=== PATIENT | male | born 1955 | race Caucasian/White ===

== ENCOUNTER 2016-07-29 07:20 | Observation (INO) | payer MEDICAID ==
--- NOTE | 2016-07-29 07:25 | EDPHY ---
HPI/HX/ROS/PE/MDM Narrative: CHIEF COMPLAINT: Tongue swelling HPI: The patient is a 61 y/o male arriving via EMS complaining of worsening tongue swelling since midnight, about 7 hours prior to arrival. He has a history of hypertension for which he was started on lisinopril a few months ago. He has never had this reaction before. He denies new exposures to foods, changes in medications, or insect bites. No shortness of breath, sensation of throat tightness, difficulty speaking or talking, or other complaints. REVIEW OF SYSTEMS: Aside from elements discussed in the HPI, a comprehensive 10-point review of systems was reviewed and is negative. PMH: Type 2 diabetes, schizoaffective disorder, CHF with diastolic dysfunction, anxiety, right knee arthroplasty, recurrent UTIs with chronic Goodwin, chronic hyponatremia, anxiety, DVT on Coumadin Prior medical records reviewed including admission 07/12/13 for malaise. SOCIAL HISTORY: Lives at [place] PHYSICAL EXAM: General:Patient is alert, in no acute distress. ENT:Eyes are normal to inspection. Enlarged tongue, mild drooling, normal voice. ENT inspection otherwise normal Neck: Normal inspection. Full range of motion. Respiratory:No respiratory distress. Breath sounds normal bilaterally. Cardiovascular: Regular rate and rhythm. Strong peripheral pulses. Normal cap refill. Abdomen:The abdomen is nontender to palpation. There are no peritoneal signs. There are normal bowel sounds. Back: Normal to inspection. No tenderness to palpation. Skin: Normal color. No rash. Warm and dry. Extremities: Full range of motion. 1-2+ pitting edema bilaterally Neuro: Oriented x3. Normal motor function. Normal sensory function. ED Course: 0720: Met EMS upon arrival and took report. IV established. Labs drawn including CBC, CHEM, PTPTT, BNP. Plan for admission for angioedema. 0855: Spoke with hospitalist service. Dr. Rapp accepts admission. MDM: This patient presents with swollen tongue that appears to be secondary to angioedema. Given recent initiation of lisinopril therapy, I suspect this is likely the etiology. The patient has a stable airway here and does not require intubation. He requires admission to the hospital for further observation and treatment however. - Data Points Laboratory Results: Laboratory Results 07/29/16 07:35 07/29/16 07:35 07/29/16 07:35 WBC 4.56 10^3/uL (3.80-9.50) RBC 4.17 L 10^6/uL (4.40-6.38) Hgb 14.1 g/dL (13.7-17.5) Hct 40.8 % (40.0-51.0) MCV 97.8 fL (81.5-99.8) MCH 33.8 pg (27.9-34.1) MCHC 34.6 g/dL (32.4-36.7) RDW 13.4 % (11.5-15.2) Plt Count 140 L 10^3/uL (150-400) MPV 10.5 fL (8.7-11.7) Neut % (Auto) 66.0 % (39.3-74.2) Lymph % (Auto) 17.3 % (15.0-45.0) [place] % (Auto) 13.6 H % (4.5-13.0) Eos % (Auto) 2.0 % (0.6-7.6) Baso % (Auto) 0.4 % (0.3-1.7) Nucleat RBC Rel Count 0.0 % (0.0-0.2) Absolute Neuts (auto) 3.01 10^3/uL (1.70-6.50) Absolute Lymphs (auto) 0.79 L 10^3/uL (1.00-3.00) Absolute Monos (auto) 0.62 10^3/uL (0.30-0.80) Absolute Eos (auto) 0.09 10^3/uL (0.03-0.40) Absolute Basos (auto) 0.02 10^3/uL (0.02-0.10) Absolute Nucleated RBC 0.00 10^3/uL (0-0.01) Immature Gran % 0.7 % (0.0-1.1) Immature Gran # 0.03 10^3/uL (0.00-0.10) PT 15.0 SEC (12.0-15.0) INR 1.18 H (0.83-1.16) APTT 30.3 SEC (23.0-38.0) Sodium 131 L mEq/L (134-144) Potassium 5.5 H mEq/L (3.5-5.2) Chloride 97 mEq/L (97-110) Carbon Dioxide 28 mEq/l (22-31) Anion Gap 6 mEq/L (8-16) BUN 28 H mg/dL (7-23) Creatinine 0.9 mg/dL (0.7-1.3) Estimated GFR > 60 Glucose 103 H mg/dL (70-100) Calcium 8.6 mg/dL (8.5-10.4) NT-Pro-B Natriuret Pep 144 H pg/mL (0-125) General Initial Vital Signs: Initial Vital Signs Temperature (C) 36.5 C 07/29/16 07:20 Heart Rate 71 07/29/16 07:20 Respiratory Rate 20 07/29/16 07:20 Blood Pressure 119/93 H 07/29/16 07:20 O2 Sat (%) 90 L 07/29/16 07:20 O2 Delivery Mode Room Air O2 (L/minute) 2 Allergies/Adverse Reactions: atenolol Allergy (Unknown, Verified 07/12/13 16:09) Unknown Beta-Adrenergic Agents Allergy (Unknown, Verified 07/12/13 16:09) Unknown hydrochlorothiazide Allergy (Unknown, Verified 07/12/13 16:09) Unknown sotalol [Sotalol] Allergy (Unknown, Verified 07/12/13 16:09) Unknown nitrofurantoin [From Macrobid] Allergy (Verified 07/12/13 16:09) nitrofurantoin macrocrystalline [From Macrobid] Allergy (Verified 07/12/13 16:09 ) Home Medications: Medication Instructions Recorded Albuterol 07/29/16 Amox Tr/Potassium Clavulanate 07/29/16 [Augmentin 1000MG ER Tablet (*)] CHLORHEX GL/GLYCERIN/HE-CELL 07/29/16 CLONAZEPAM 07/29/16 Calcium Carbonate 07/29/16 Divalproex ER [Depakote ER 250 MG 07/29/16 (*)] Dulcolax 07/29/16 FLUoxetine 07/29/16 Ipratropium/Albuterol 07/29/16 Lactobacillus Combo No.11 07/29/16 [Probiotic] Lasix 07/29/16 Lisinopril 07/29/16 MAGNESIUM 07/29/16 Magnesium Oxide 07/29/16 Metformin 1000 mg 07/29/16 QUEtiapine FUMARATE [Seroquel 100 07/29/16 mg (*)] THERMOTABS TABLET 07/29/16 Tylenol 07/29/16 Warfarin Sodium [Coumadin] 5 mg PO 07/29/16 Departure - Departure Disposition: [facility] Inpatient Acute Clinical Impression: Angioedema Qualifiers: Qualifier Code: (T78.3XXA) Angioneurotic edema, initial encounter Condition: Fair Report Scribed for: Ryan Lam Report Scribed by: Lesley Foster Date of Report: 07/29/16 Time of Report: 07:25 Physician Review and Approval Statement: Portions of this note were transcribed by an ED scribe. I personally performed the history, physical exam, and medical decision making; and confirm the accuracy of the information in the transcribed note.
[2016-07-29 07:45] LABS: % IMMATURE GRANULYOCYTES 0.7 % (0.0-1.1); ABSOLUTE IMMATURE GRANULOCYTES 0.03 10^3/uL (0.00-0.10); ADD DIFF? NO; ADD MORPH? NO; ADD SCAN? NO; ATYPICAL LYMPHOCYTE FLAG 0 (0-99); FRAGMENT RBC FLAG 0 (0-99); HEMATOCRIT 40.8 % (40.0-51.0); HEMOGLOBIN 14.1 g/dL (13.7-17.5); LEFT SHIFT FLG 0 (0-99); LIPEMIA HEMOLYSIS FLAG 90 (0-99); MEAN CELL HEMOGLOBIN 33.8 pg (27.9-34.1); MEAN CELL HEMOGLOBIN CONCENTR. 34.6 g/dL (32.4-36.7); MEAN CELL VOLUME 97.8 fL (81.5-99.8); MEAN PLATELET VOLUME 10.5 fL (8.7-11.7); PLATELET CLUMPS FLAG 10 (0-99); PLATELET COUNT 140 10^3/uL (150-400); RED BLOOD CELL COUNT 4.17 10^6/uL (4.40-6.38); RED CELL DISTRIBUTION WIDTH 13.4 % (11.5-15.2)
[2016-07-29 07:55] LABS: INR 1.18 (0.83-1.16)
[2016-07-29 07:56] LABS: APTT 30.3 SEC (23.0-38.0)
[2016-07-29 08:08] LABS: ANION GAP 6 mEq/L (8-16); CALCIUM 8.6 mg/dL (8.5-10.4); CARBON DIOXIDE 28 mEq/l (22-31); CHLORIDE 97 mEq/L (97-110); CREATININE 0.9 mg/dL (0.7-1.3); GLOMERULAR FILTRATION RATE > 60; GLUCOSE 103 mg/dL (70-100); POTASSIUM 5.5 mEq/L (3.5-5.2); SODIUM 131 mEq/L (134-144)
[2016-07-29] MEDS ORDERED: ACETAMINOPHEN 325 MG TAB PO PRN (10:37)
[2016-07-29] MEDS ORDERED: ONDANSETRON DISINTEGRATING 4 MG TAB PO PRN (10:37)
[2016-07-29] MEDS ORDERED: ONDANSETRON 4 MG/2 ML VIAL IVP PRN (10:37)
[2016-07-29 11:52] LABS: ANION GAP 7 mEq/L (8-16); CALCIUM 8.9 mg/dL (8.5-10.4); CARBON DIOXIDE 28 mEq/l (22-31); CHLORIDE 96 mEq/L (97-110); CREATININE 0.9 mg/dL (0.7-1.3); GLOMERULAR FILTRATION RATE > 60; GLUCOSE 106 mg/dL (70-100); POTASSIUM 5.4 mEq/L (3.5-5.2); SODIUM 131 mEq/L (134-144)
--- NOTE | 2016-07-29 12:01 | GHP ---
[f rep st] HISTORY AND PHYSICAL DATE OF ADMISSION: 07/29/2016 DATE OF EVALUATION: 07/29/2016 CHIEF COMPLAINT: Tongue swelling. HISTORY OF PRESENT ILLNESS: This is a 61-year-old man who is a permanent [place] resident who presents with tongue swelling. He was started on lisinopril for hypertension about 3 months ago. He has never had any episodes of this before. It started last night and got progressively worse through the night. He has no problems breathing. He is having difficulty speaking due to the size of his tongue. He feels as though his tongue is actually improving at this point as his speaking has become easier than it was previously. He has a history of PE, on Coumadin. Recent dose adjustments appeared to have been made as he had an INR of 4.1, on 07/20/2016. PAST MEDICAL/SURGICAL HISTORY: 1. History of a pulmonary embolus, on Coumadin, with subtherapeutic INR. 2. 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 3. History of recurrent urinary tract infections, including ESBL. 4. Neurogenic bladder. 5. Type 2 diabetes. 6. Schizoaffective disorder. 7. Diastolic CHF. 8. Obstructive sleep apnea. 9. Anxiety. 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 11. Chronic hyponatremia. 12. Chronic lower extremity edema. 13. COPD. 14. GERD. MEDICATIONS: Please see medication reconciliation. ALLERGIES: Atenolol, beta adrenergic agents, sotalol, Macrobid, lisinopril. SOCIAL HISTORY: He lives in [place]. He smokes. His sister is his POA. FAMILY HISTORY: Father from trauma. REVIEW OF SYSTEMS: A 10-point review of systems is conducted and is negative except per HPI. PHYSICAL EXAMINATION: VITAL SIGNS: Blood pressure 130/88, heart rate 67, respiration rate 20, saturating 95% on 1.5 L. GENERAL: The patient is a pleasant man who is lying in bed, comfortable, in no acute distress. HEENT: Shows him to have a significantly edematous tongue. He is able to speak, open his mouth. I can barely see the upper back part of his palate. CARDIOVASCULAR : Regular rate and rhythm. No murmurs, rubs, or gallops. PULMONARY: Lungs are clear to auscultation bilaterally. ABDOMEN: Soft, nontender, nondistended. SKIN: No rash. : A Goodwin in place. NEUROLOGIC: Shows him to be alert and oriented x3. He is moving all extremities. PSYCHIATRIC: Normal mood and affect. LABORATORY DATA: CBC is unremarkable. INR is 1.18, sodium 131, potassium 5.5. I reviewed his chart, including his chart from [facility], as well as [place] chart. IMPRESSION AND PLAN: A 61-year-old man who presents with angioedema. 1. Angioedema: LENNY inhibitor induced. Primary role is supportive. It seems to be slowly improving at this point. If it worsens, he may need intubation with mechanical ventilation. Airway may be difficult, would potentially need emergent tracheostomy. Monitor him on pulse oximetry. Will give one dose of pepcid and benadryl. Adjunctive treatments include Icatibant , FFP, purified C1 inhibitor concentrate, or Ecallantide. I have added lisinopril to his allergy list. We will hold this. 2. Hyperkalemia. This seems to be somewhat of a chronic problem for him. I have written to recheck his labs. 3. Hyponatremia, also somewhat of a chronic problem. We will follow. 4. COPD. He has somewhat chronic respiratory failure, on oxygen. Will continue. 5. History of infected knee replacement. We will continue his suppressive antibiotics. 6. History of a PE with subtherapeutic INR. We will continue his warfarin and recheck his INR tomorrow. 7. Schizoaffective disorder. Continue his medicines. 8. Chronic diastolic dysfunction and lower extremity edema: We will continue his furosemide. 9. Hypertension. Hold lisinopril. Restart his other medicines. May need to add adjunctive treatment. 10. Diabetes mellitus. Continue his oral medicines. 11. Code status is full. His sister is his POA. 12. VTE risk. He is currently admitted as obs. If he stays, would start either bridging-dose Lovenox or at least therapeutic-dose Lovenox. /[id number]/MODL MTDD
[2016-07-29] MEDS ORDERED: CALCIUM CARBONATE 500 MG CHEWABLE TAB PO PRN (12:07)
[2016-07-29] MEDS ORDERED: ALBUTEROL 60 PUFFS/8 GM MDI IH PRN (12:07)
[2016-07-29] MEDS ORDERED: MAGNESIUM HYDROXIDE 30 ML UDCUP PO PRN (12:07)
[2016-07-29] MEDS ORDERED: BISACODYL 10 MG SUPP PR PRN (12:07)
[2016-07-29] MEDS ORDERED: GUAIFENESIN/DM 10 ML UDCUP PO PRN (12:07)
[2016-07-29] MEDS ORDERED: oxyCODONE IR 5 MG TAB PO PRN (12:07)
[2016-07-29] MEDS ORDERED: NON-FORMULARY NEW DRUG (Magnesium Hydroxide/Al Hydrox [Mylanta Liquid] 30 ML) PO PRN (12:07)
[2016-07-29] MEDS ORDERED: FAMOTIDINE 20 MG/NACL 50 ML IV ONE (12:17)
[2016-07-29] MEDS ORDERED: MAG HYDROX/AL HYDROX/SIMETH 30 ML UDCUP PO PRN (12:42)
[2016-07-29] MEDS: ACETAMINOPHEN 500 MG TAB PO SCH ×2 (13:19→23:43)
[2016-07-29] MEDS: FUROSEMIDE 20 MG TAB PO SCH (13:22)
[2016-07-29 15:01] LABS: ANION GAP 6 mEq/L (8-16); CALCIUM 8.3 mg/dL (8.5-10.4); CARBON DIOXIDE 28 mEq/l (22-31); CHLORIDE 96 mEq/L (97-110); CREATININE 0.8 mg/dL (0.7-1.3); GLOMERULAR FILTRATION RATE > 60; GLUCOSE 106 mg/dL (70-100); POTASSIUM 4.8 mEq/L (3.5-5.2); SODIUM 130 mEq/L (134-144)
[2016-07-29] MEDS ORDERED: WARFARIN SODIUM 5 MG TAB PO SCH (16:00)
[2016-07-29] MEDS: metFORMIN HCL 500 MG TAB PO SCH (16:52)
[2016-07-29] MEDS: QUEtiapine FUMARATE 300 MG TAB PO SCH (20:05)
[2016-07-29] MEDS: CALCIUM CARBONATE 500 MG TAB PO SCH (20:05)
[2016-07-29] MEDS: OXYBUTYNIN CHLORIDE 5 MG TAB PO SCH (20:05)
[2016-07-29] MEDS: AMOXICILLIN/CLAVULANATE POT 875/125 MG TAB PO SCH (20:05)
[2016-07-29] MEDS: CHLORHEXIDINE GLUCONATE 15 ML UDL PO SCH (20:06)
[2016-07-29] MEDS: clonazePAM 0.5 MG TAB PO SCH (20:06)
[2016-07-29] MEDS: IPRATROPIUM/ALBUTEROL 4GM MDI IH SCH (20:32)
[2016-07-29] MEDS ORDERED: WARFARIN SODIUM 10 MG PO SCH (21:00)
[2016-07-29] MEDS ORDERED: DIVALPROEX ER 500 MG TAB PO SCH (21:00)
[2016-07-29] MEDS ORDERED: ACETAMINOPHEN 500 MG TAB PO SCH (22:00)
[2016-07-30 05:00] LABS: % IMMATURE GRANULYOCYTES 0.5 % (0.0-1.1); ABSOLUTE IMMATURE GRANULOCYTES 0.02 10^3/uL (0.00-0.10); ADD DIFF? NO; ADD MORPH? NO; ADD SCAN? NO; ATYPICAL LYMPHOCYTE FLAG 10 (0-99); FRAGMENT RBC FLAG 0 (0-99); HEMATOCRIT 39.4 % (40.0-51.0); HEMOGLOBIN 13.4 g/dL (13.7-17.5); LEFT SHIFT FLG 0 (0-99); LIPEMIA HEMOLYSIS FLAG 90 (0-99); MEAN CELL HEMOGLOBIN 33.6 pg (27.9-34.1); MEAN CELL VOLUME 98.7 fL (81.5-99.8); MEAN PLATELET VOLUME 10.6 fL (8.7-11.7); PLATELET CLUMPS FLAG 10 (0-99); PLATELET COUNT 129 10^3/uL (150-400); RED BLOOD CELL COUNT 3.99 10^6/uL (4.40-6.38); RED CELL DISTRIBUTION WIDTH 13.4 % (11.5-15.2)
[2016-07-30 05:13] LABS: INR 1.56 (0.83-1.16); PROTIME(PATIENT) 18.7 SEC (12.0-15.0)
[2016-07-30 05:23] LABS: ANION GAP 4 mEq/L (8-16); CALCIUM 8.4 mg/dL (8.5-10.4); CARBON DIOXIDE 29 mEq/l (22-31); CHLORIDE 102 mEq/L (97-110); CREATININE 0.8 mg/dL (0.7-1.3); GLOMERULAR FILTRATION RATE > 60; GLUCOSE 105 mg/dL (70-100); POTASSIUM 4.8 mEq/L (3.5-5.2); SODIUM 135 mEq/L (134-144)
[2016-07-30 08:09] VITALS: RESP 13
[2016-07-30] MEDS: CHLORHEXIDINE GLUCONATE 15 ML UDL PO SCH (08:15)
[2016-07-30] MEDS: metFORMIN HCL 500 MG TAB PO SCH (08:20)
[2016-07-30] MEDS: FUROSEMIDE 20 MG TAB PO SCH (08:21)
[2016-07-30] MEDS: AMOXICILLIN/CLAVULANATE POT 875/125 MG TAB PO SCH (08:21)
[2016-07-30] MEDS: OXYBUTYNIN CHLORIDE 5 MG TAB PO SCH (08:22)
[2016-07-30] MEDS: CALCIUM CARBONATE 500 MG TAB PO SCH (08:23)
[2016-07-30] MEDS: QUEtiapine FUMARATE 300 MG TAB PO SCH (08:23)
[2016-07-30] MEDS ORDERED: ARIPiprazole 10 MG TAB PO SCH (09:00)
[2016-07-30] MEDS ORDERED: FLUoxetine 20 MG CAP PO SCH (09:00)
[2016-07-30] MEDS ORDERED: MAGNESIUM OXIDE 400 MG TAB PO SCH (09:00)
[2016-07-30] MEDS ORDERED: ARIPIPRAZOLE 30 MG PO SCH (09:00)
[2016-07-30] MEDS: IPRATROPIUM/ALBUTEROL 4GM MDI IH SCH (09:40)
--- NOTE | 2016-07-30 09:42 | PDIAF ---
- Diagnosis Diagnosis: angioedema from lisinopril Code Status: Full Code - Medication Management Discharge Medications: Medications to Continue on Transfer ARIPIPRAZOLE [Abilify 30mg] 30 mg PO DAILY 07/29/16 [Last Taken 07/28/16] Acetaminophen [Tylenol ES 500 mg (*)] 1,000 mg PO DAILY@2200 07/29/16 [Last Taken 07/28/16] Acetaminophen [Tylenol ES 500 mg (*)] 1,000 mg PO Q12H 07/29/16 [Last Taken 09/09 04:00 1000MG] Albuterol [Proventil Inhaler HFA (*)] 2 puffs IH Q4 PRN 07/29/16 [Last Taken 08/12] Amoxicillin/Clavulanate Pot [Augmentin 875 MG TAB (*)] 875 mg PO BID 07/29/16 [ Last Taken 07/28/16] Bisacodyl [Dulcolax] 10 mg RC Q24H PRN 07/29/16 [Last Taken Unknown] Calcium Carbonate [Oyster Shell Calcium 500 mg (*)] 500 mg PO BID 07/29/16 [ Last Taken 07/28/16] Calcium Carbonate [Tums 500MG (*)] 500 mg PO Q12H PRN 07/29/16 [Last Taken 07/28] Chlorhexidine Gluconate 5 ml PO BID 07/29/16 [Last Taken 07/28/16] Divalproex ER [Depakote ER 500 MG (*)] 1,500 mg PO HS 07/29/16 [Last Taken 07/28] FLUoxetine [Prozac 20 MG (*)] 20 mg PO DAILY 07/29/16 [Last Taken 07/28/16] Furosemide [Lasix 20 MG (*)] 50 mg PO DAILY 07/29/16 [Last Taken 07/28/16] Herbals/Supplements -Info Only 1 ea PO DAILY 07/29/16 [Last Taken 07/28/16] Ipratropium/Albuterol [Combivent Respimat Inhal [place](*)] 2 inh IH BID 07/29/16 [Last Taken 07/28/16] Magnesium Hydroxide [Milk of Magnesia] 30 ml PO Q24H PRN 07/29/16 [Last Taken Unknown] Magnesium Hydroxide/Al Hydrox [Mylanta Liquid] 30 ml PO Q2H PRN 07/29/16 [Last Taken Unknown] Magnesium Oxide [Magnesium Oxide 400 mg (*)] 400 mg PO DAILY 07/29/16 [Last Taken 07/28/16] Oxybutynin Chloride [Ditropan] 10 mg PO BID 07/29/16 [Last Taken 07/28/16] QUEtiapine FUMARATE [Seroquel 300mg (*)] 300 mg PO BID 07/29/16 [Last Taken 09/09] Warfarin Sodium [Coumadin] 10 mg PO HS 07/29/16 [Last Taken 07/28/16] clonazePAM [Klonopin (*)] 0.25 mg PO BID@07/29/16 [Last Taken 07/28/16] guaiFENesin/DEXTROMETHORPHAN [Robitussin Dm Oral Liquid (*)] 10 ml PO Q4H PRN [Last Taken Unknown] metFORMIN HCL [Glucophage 500 mg (*)] 500 mg PO BIDMEAL 07/29/16 [Last Taken 08/12] oxyCODONE IR [Oxycodone Ir (*)] 5 mg PO Q12H PRN 07/29/16 [Last Taken Unknown] Diphenhydramine HCl [Benadryl] 25 mg PO TID PRN #0 capsule 07/30/16 [Last Taken Unknown] Ranitidine HCl 150 mg PO BID PRN #0 tablet 07/30/16 [Last Taken Unknown] amLODIPine BESYLATE [Norvasc 5 mg (*)] 5 mg PO DAILY #0 tab 07/30/16 [Last Taken Unknown] Discharge Medications: Refer to the Discharge Home Medication list for PRN reason. - Orders Services needed: Registered Nurse, Certified Consultant Dietitian, Master Preparation Supervisor , Physical Therapy Diet Recommendation: ADA 2200 consistent carb Diet Texture: Regular Texture Diet - Follow Up Care Current Providers and Referrals: Patient,NotPresent [Unknown] - As per Instructions
--- NOTE | 2016-07-30 10:04 | GDS ---
[f rep st] DISCHARGE SUMMARY DIAGNOSES: 1. Angioedema secondary to lisinopril. 2. History of pulmonary embolism on Coumadin. 3. History of prostatic knee complicated by infection, on chronic suppressive antibiotics. 4. Recurrent urinary tract infections. 5. Neurogenic bladder. 6. Type 2 diabetes. 7. Schizoaffective disorder. 8. Diastolic heart failure. 9. Obstructive sleep apnea. 10. Anxiety. 11. Macrodantin-induced pneumonitis. 12. Chronic hyponatremia. 13. Chronic lower extremity edema. 14. Chronic obstructive pulmonary disease. 15. Gastroesophageal reflux disease. 16. Morbid obesity. 17. Hypertension. HOSPITAL COURSE: The patient is a 61-year-old, in long-term care at [facility]. He comes in with an gioedema after being started on lisinopril for hypertension. It started the night prior to admission and progressively worsened. He was admitted overnight, given some steroids, H1 and H2 blockers, and at time of discharge he says he is 90% better, and is feeling well. He has not received any medicat ions overnight. Lisinopril was added to his medication list. His blood pressure is remaining slight ly elevated so I added Norvasc 5 mg daily to his medication list, for elevated blood pressure. CONDITION ON DISCHARGE: Good. Vital signs are stable. O2 saturation is 93% on 3 L. Blood pressure 142/95. He is alert and orient ed. Heart is regular. Lungs are clear. DISCHARGE MEDICATIONS: Please see discharge medication form. FOLLOWUP: He will be discharged back to [facility]. We can provide home oxygen in short-term until he is back to baseline. Total time spent with patient on day of discharge is 35 minutes. /[id number]/MODL
[2016-07-30 11:13] VITALS: BP 150/92; PULSE 73; TEMP 97.9; O2SAT 91
[2016-07-30] MEDS: ACETAMINOPHEN 500 MG TAB PO SCH (11:22)
[2016-07-30] MEDS: clonazePAM 0.5 MG TAB PO SCH (11:23)
== END 2016-07-30 12:12 ==
LOC: EDUNIT# → F3E 10:11
PROVIDERS: ADMIT Student in an Organized Health Care Education/Training Program; ATTEND Student in an Organized Health Care Education/Training Program
DX: T78.3XXA Angioneurotic edema, initial encounter (principal); T46.4X5A Adverse effect of angiotensin-converting-enzyme inhibitors, initial encounter; E87.1 Hypo-osmolality and hyponatremia; E87.5 Hyperkalemia; Z86.711 Personal history of pulmonary embolism; Z79.01 Long term (current) use of anticoagulants; Z87.440 Personal history of urinary (tract) infections; J70.4 Drug-induced interstitial lung disorders, unspecified; N31.9 Neuromuscular dysfunction of bladder, unspecified; E11.9 Type 2 diabetes mellitus without complications; F25.9 Schizoaffective disorder, unspecified; I50.32 Chronic diastolic (congestive) heart failure; T84.53XD Infection and inflammatory reaction due to internal right knee prosthesis, subsequent encounter; G47.33 Obstructive sleep apnea (adult) (pediatric); F41.9 Anxiety disorder, unspecified; J44.9 Chronic obstructive pulmonary disease, unspecified; K21.9 Gastro-esophageal reflux disease without esophagitis; E66.01 Morbid (severe) obesity due to excess calories; I10 Essential (primary) hypertension; F17.200 Nicotine dependence, unspecified, uncomplicated; Z96.651 Presence of right artificial knee joint; Z79.2 Long term (current) use of antibiotics
CPT/HCPCS: 97165; 99285; G0378; J1200

== ENCOUNTER → 2016-12-20 | Outpatient (CLI) | payer MEDICAID ==
[~2016-12-20] MED LIST: IOPAMIDOL (ISOVUE 370) 100 ML BTL IV ONE
[2016-12-20 17:16] LABS: GLOMERULAR FILTRATION RATE > 60
== END ==
LOC: FIMAGING 15:46
PROVIDERS: ATTEND Radiology Diagnostic Radiology
DX: I71.2 Thoracic aortic aneurysm, without rupture (principal); I25.10 Atherosclerotic heart disease of native coronary artery without angina pectoris; I10 Essential (primary) hypertension; I87.1 Compression of vein
CPT/HCPCS: Q9967

== ENCOUNTER 2018-12-13 11:23 | Day surgery (SDC) | payer MEDICAID | END 2018-12-13 16:12 | LOC: FSGY 11:23 ==